=== PATIENT | female | born 1955 | race Caucasian/White ===

== ENCOUNTER 2016-06-17 09:19 | Emergency (ER) | payer OTHER ==
[~2016-06-17] VITALS: Ht 160 cm; Wt 108.6 kg
[~2016-06-17 09:19] MED LIST: ABILIFY10 MG PO; ADVAIR HFA120 INHALA IH; ASMANEX TW200 MICRO1 IH; ATENOLOL25 M1 PO; Atenolol PO; BENAZEPRIL HCL20 MG PO; BENZONATATE100 MG PO; CARRASYN HYDROG85 GM TP; CYMBALTA60 MG PO; Celexa PO; Combivent IH; DELTASONE10 MG PO; DEPAKOTE ER500 MG PO; DEPAKOTE250 MG PO; DEPAKOTE500 MG; DEPAKOTE500 MG PO; DIAZEPAM5 MG PO; DICLOFENAC SODI50 MG PO; DIFLUCAN150 MG PO; DUONEB 2.5-0.5 M3 ML AEROSOL; DUONEB 2.5-0.5 M3 ML IH; FLEXERIL10 MG PO; FLUOXETINE HCL20 M1 PO; GLUCOPHAGE500 MG PO; HABITROL,NICODE21 MG TD; HYDROCODON-ACE1 EAC7 PO; HYDROXYZINE HCL25 MG PO; K-DUR20 MEQ PO; KEFLEX500 MG PO; KLONOPIN0.5 M1 PO; KLONOPIN1 M2; KLONOPIN1 MG PO; LAMICTAL100 MG PO; LASIX20 MG PO; LITHIUM CARBON300 M1; LITHIUM CARBON600 MG; LITHOBID300 MG PO; LOTREL 5/101 CAPSULE PO; LOVASTATIN20 MG PO; METFORMIN HCL500 MG PO; NAPROSYN-EC500 MG PO; NAPROXEN500 M1 PO; NAPROXEN500 MG PO; NICOTINE PATCH1 EAC2 TD; NICOTINE PATCH1 EACH TD; OMEPRAZOLE20 M2 PO; PANTOPRAZOLE SO20 MG PO; PEPCID40 MG PO; PREDNISONE10 MG PO; PREDNISONE20 MG PO; PROAIR RESPICL90 MCG IH; PROTONIX40 MG PO; PROZAC40 MG PO; ROBITUSSIN DM118 ML PO; SPIRIVA RESPIMAT4 GM IH; TENORMIN25 MG PO; TRAMADOL HCL50 MG PO; VALIUM5 MG PO; VENTOLIN HFA18 GM IH; VICODIN 5-3001 EACH PO; VICODIN,LORT1 TABLET PO; WELLBUTRIN XL300 MG PO; ZITHROMAX Z-PA250 MG PO; ZITHROMAX250 MG PO; ZOCOR40 MG PO
[2016-06-17 09:36] LABS: POINT-OF-CARE METER ID UU13113778
[2016-06-17 09:52] LABS: HEMATOCRIT 39.3 % (36.0-46.0); MCH 29.6 PG (29.0-34.0); MCHC 31.8 G/DL (30.0-36.0); MCV 93.1 FL (83-99); MEAN PLAT.VOLUME 10.1 uM^3 (9.5-12.4); PLATELET COUNT 266 K/uL (156-360); RBC DIS.WIDTH-CV 12.5 % (11.8-14.6); RBC DIS.WIDTH-SD 42.5 % (39-53); RED BLOOD COUNT 4.22 M/uL (3.80-5.20); WHITE BLOOD COUNT 8.4 K/uL (4.1-10.2)
[2016-06-17 10:03] LABS: CHLORIDE 107 mEq/L (99-109); POTASSIUM 4.7 mEq/L (3.7-5.4); SODIUM 141 mEq/L (136-147)
[2016-06-17 10:05] LABS: GLUCOSE 128 mg/dL (70-99)
[2016-06-17 10:06] LABS: ANION GAP 12 MEQ/L (2-14)
[2016-06-17 10:09] LABS: GFR ESTIMATE (CALCULATED) > 59 mL/min/
[2016-06-17 10:10] LABS: UREA NITROGEN (BUN) 12 mg/dL (9-23)
[2016-06-17 10:56] LABS: TOTAL BILIRUBIN 0.2 mg/dL (0.0-1.0)
[2016-06-17 10:57] LABS: ALKALINE PHOSPHATASE 47 IU/L (3-129)
[2016-06-17 11:00] LABS: DIRECT BILIRUBIN 0.1 mg/dL (0.0-0.3)
[2016-06-17 11:01] LABS: LIPASE 37 U/L (1.0-51.0)
[2016-06-17 12:14] LABS: ADD MIUA? YES; BILIRUBIN NEGATIVE; BLOOD NEGATIVE; COLOR YELLOW ((YELLOW)); GLUCOSE (STRIP) NEGATIVE; KETONES NEGATIVE; LEUKOCYTES NEGATIVE; NITRITE NEGATIVE; PROTEIN (STRIP) 30; SPECIFIC GRAVITY 1.021 (1.000-1.030); UROBILINOGEN 0.2 MG/DL (0.2-1.0)
[2016-06-17 12:19] LABS: BACTERIA RARE /HPF; CALCIUM OXALATE CRYSTALS 3+ /HPF; EPITHELIAL CELLS RARE /HPF; HYALINE CASTS 0-5 /LPF; MUCUS TRACE /LPF; RED BLOOD CELLS 0-5 /HPF (0-5); WHITE BLOOD CELLS 0-5 /HPF (0-5)
[2016-06-17] MEDS ORDERED: ZOFRAN ODT8 MG PO (14:15)
[2016-06-17] MEDS ORDERED: ATIVAN0.5 MG PO (14:15)
[2016-06-17 15:13] VITALS: BP 109/48
== END 2016-06-17 15:18 | disposition home or self-care (01) ==
LOC: EME 09:19
PROVIDERS: Emergency Medicine
DX: F41.9 Anxiety disorder, unspecified (principal); R11.0 Nausea; R10.9 Unspecified abdominal pain; R42 Dizziness and giddiness; E11.9 Type 2 diabetes mellitus without complications; I10 Essential (primary) hypertension; J44.9 Chronic obstructive pulmonary disease, unspecified; J45.909 Unspecified asthma, uncomplicated; F17.200 Nicotine dependence, unspecified, uncomplicated; Z71.6 Tobacco abuse counseling
CPT/HCPCS: 74177; 80048; 80076; 81003; 82948; 83690; 85027; J1885; J2060; J2270; J2405; J7030

== ENCOUNTER 2016-12-22 15:00 | Inpatient (IN) | payer OTHER ==
[~2016-12-22] VITALS: Ht 160 cm; Wt 97.4 kg
[~2016-12-22 15:00] MED LIST changes: +ATIVAN0.5 MG PO; +ZOFRAN ODT8 MG PO
[2016-12-22 16:44] LABS: HEMATOCRIT 46.4 % (36.0-46.0); MCH 28.9 PG (29.0-34.0); MCHC 31.3 G/DL (30.0-36.0); MCV 92.4 FL (83-99); MEAN PLAT.VOLUME 9.9 uM^3 (9.5-12.4); PLATELET COUNT 284 K/uL (156-360); RBC DIS.WIDTH-CV 13.7 % (11.8-14.6); RBC DIS.WIDTH-SD 45.8 % (39-53); RED BLOOD COUNT 5.02 M/uL (3.80-5.20); WHITE BLOOD COUNT 10.4 K/uL (4.1-10.2)
[2016-12-22 16:55] LABS: CHLORIDE 102 mEq/L (99-109); POTASSIUM 4.9 mEq/L (3.7-5.4); SODIUM 144 mEq/L (136-147)
[2016-12-22 16:57] LABS: GLUCOSE 123 mg/dL (70-99)
[2016-12-22 16:58] LABS: ANION GAP 9 MEQ/L (2-14)
[2016-12-22 17:01] LABS: GFR ESTIMATE (CALCULATED) > 59 mL/min/; UREA NITROGEN (BUN) 13 mg/dL (9-23)
[2016-12-22 17:06] LABS: TROP-I INTERPRETATION NEGATIVE; TROPONIN-I < 0.01 ng/mL (0.0-0.30)
[2016-12-22 17:48] VITALS: BP 129/59
[2016-12-22] MEDS ORDERED: DULOXETINE HCL30 MG PO (18:58)
[2016-12-22] MEDS ORDERED: ERGOCALCIF50000 UNIT PO (18:59)
[2016-12-22] MEDS ORDERED: FAMOTIDINE40 MG PO (18:59)
[2016-12-22] MEDS ORDERED: ZOLOFT50 MG PO (19:00)
[2016-12-22] MEDS ORDERED: GLIPIZIDE5 MG PO (19:00)
[2016-12-22] MEDS ORDERED: ADVAIR HFA120 INHAL1 IH (19:01)
[2016-12-22] MEDS ORDERED: PREDNISONE10 MG PO (19:08)
[2016-12-22] MEDS ORDERED: ALBUTEROL2.5 MG/3 M IH (19:11)
[2016-12-22 20:01] VITALS: BP 204/81
[2016-12-22 23:34] LABS: TROP-I INTERPRETATION NEGATIVE; TROPONIN-I < 0.01 ng/mL (0.0-0.30)
[2016-12-23 00:30] VITALS: BP 108/68
[2016-12-23 04:35] VITALS: BP 132/75
[2016-12-23 05:52] LABS: HEMATOCRIT 45.3 % (36.0-46.0); MCH 30.1 PG (29.0-34.0); MEAN PLAT.VOLUME 10.4 uM^3 (9.5-12.4); PLATELET COUNT 250 K/uL (156-360); RBC DIS.WIDTH-CV 13.8 % (11.8-14.6); RBC DIS.WIDTH-SD 46.9 % (39-53); RED BLOOD COUNT 4.82 M/uL (3.80-5.20)
[2016-12-23 06:15] LABS: ALKALINE PHOSPHATASE 39 IU/L (3-129); ANION GAP 9 MEQ/L (2-14); CHLORIDE 103 MEQ/L (99-109); GFR ESTIMATE (CALCULATED) > 59 mL/min/; SAMPLE HEMOLYSIS CHECK 0; SAMPLE ICTERIC CHECK 0; SAMPLE LIPEMIA CHECK 0; SODIUM 142 MEQ/L (136-147); TOTAL BILIRUBIN 0.3 MG/DL (0.0-1.0); UREA NITROGEN (BUN) 14 mg/dL (9-23)
[2016-12-23 06:19] LABS: TROP-I INTERPRETATION NEGATIVE; TROPONIN-I < 0.01 ng/mL (0.0-0.30)
[2016-12-23 06:20] LABS: GLUCOSE 240 mg/dL (70-99)
[2016-12-23 08:16] VITALS: BP 113/70
[2016-12-23 08:48] LABS: POINT-OF-CARE METER ID UU13113831
[2016-12-23 12:07] VITALS: BP 151/74
[2016-12-23 14:00] VITALS: BP 141/81
[2016-12-23 18:00] LABS: POINT-OF-CARE METER ID UU13113831
[2016-12-23 20:00] VITALS: BP 94/58
[2016-12-24 01:00] VITALS: BP 108/56
[2016-12-24 05:00] VITALS: BP 98/56
[2016-12-24 08:03] VITALS: BP 110/70
[2016-12-24 16:08] VITALS: BP 105/58
[2016-12-24 18:00] LABS: POINT-OF-CARE METER ID UU13113831
[2016-12-24 19:40] VITALS: BP 102/55
[2016-12-24 21:32] LABS: POINT-OF-CARE METER ID UU13113831
[2016-12-25 00:15] VITALS: BP 101/56
[2016-12-25 04:41] VITALS: BP 101/52
[2016-12-25 09:06] LABS: POINT-OF-CARE METER ID UU13113831
[2016-12-25 09:15] VITALS: BP 116/56
[2016-12-25] MEDS ORDERED: PREDNISONE20 MG PO (10:10)
[2016-12-25] MEDS ORDERED: LEVOFLOXACIN750 MG PO (10:10)
[2016-12-25] MEDS ORDERED: NICORELIEF2 MG BC (10:10)
[2016-12-25] MEDS ORDERED: BENZONATATE100 MG PO (10:10)
[2016-12-25] MEDS ORDERED: NICOTINE PATCH1 EAC2 TD (10:10)
[2016-12-25] MEDS ORDERED: ATENOLOL25 MG PO ×2 (11:08→11:09)
[2016-12-25] MEDS ORDERED: LASIX20 MG PO (11:10)
[2016-12-25] MEDS ORDERED: METFORMIN HCL500 MG PO (11:10)
[2016-12-25] MEDS ORDERED: ERGOCALCIF50000 UNIT PO (11:10)
[2016-12-25] MEDS ORDERED: GLIPIZIDE5 MG PO (11:10)
[2016-12-25] MEDS ORDERED: K-DUR10 MEQ PO (11:14)
[2016-12-25 12:04] VITALS: BP 117/76
[2016-12-25] MEDS ORDERED: LOPRESSOR25 MG PO (12:38)
== END 2016-12-25 15:45 | disposition home health service (06) | DRG 192 ==
LOC: EME 15:00 → EDOF 19:02 → 5WEST 19:02 → EDOF 19:02 → ENRESERV 19:03 → 5WEST 19:50 → ENRESERV 12-23 14:43 → 5WEST 12-25 15:45
PROVIDERS: Internal Medicine
DX: J44.0 Chronic obstructive pulmonary disease with (acute) lower respiratory infection (principal); J20.9 Acute bronchitis, unspecified; J44.1 Chronic obstructive pulmonary disease with (acute) exacerbation; E11.65 Type 2 diabetes mellitus with hyperglycemia; I10 Essential (primary) hypertension; X58.XXXA Exposure to other specified factors, initial encounter; S41.102A Unspecified open wound of left upper arm, initial encounter; E78.00 Pure hypercholesterolemia, unspecified; F41.9 Anxiety disorder, unspecified; K21.9 Gastro-esophageal reflux disease without esophagitis; F31.9 Bipolar disorder, unspecified; E66.9 Obesity, unspecified; Z68.38 Body mass index [BMI] 38.0-38.9, adult; F17.210 Nicotine dependence, cigarettes, uncomplicated; Z79.4 Long term (current) use of insulin; Z82.49 Family history of ischemic heart disease and other diseases of the circulatory system; Z82.5 Family history of asthma and other chronic lower respiratory diseases
CPT/HCPCS: 71020; 80048; 80053; 82948; 84484; 85027; 90686; 93005; 94640; 94640 76; 94760; 94799; 99202; 99281; 99284; G0378; J1644; J1815; J1956; J2920; J2930; J7040